=== PATIENT | male | born 1930 | race Caucasian/White ===

== ENCOUNTER 2017-04-19 18:33 | Inpatient (IN) | payer OTHER ==
[~2017-04-19] VITALS: Ht 177.8 cm; Wt 77.3 kg
--- NOTE | ~2017-04-19 | EKG ---
[address] [place] [address] ELECTROCARDIOGRAM REPORT Name: JOHN CANADA Room #: 437-P ADM IN M.R.#: [id number] Admission: 04/19/17 Attend Phys: Gama Choudhury MD Discharge: Date of : [birth year] Report #: [id number] THIS REPORT FOR: //name// [facility] ED Test Date: 2017-04-19 Test Time: 18:45:12 Pat Name: JOHN CANADA Department: Room: [facility] Gender: M Ell Tutor: LIBAN : 1930 Requested By: Gus Weeks Order Number: [id number] MD: Celestine Alfonso Measurements Intervals [place] Rate: 91 P: 70 PA: 195 QRS: -66 QRSD: 156 T: 111 QT: 420 QTc: 517 Interpretive Statements Atrial-sensed ventricular-paced rhythm No further analysis attempted due to paced rhythm Compared to ECG 09/30/2012 07:17:10 No significant changes Electronically Signed On 04-20-2017 9:24:10 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
--- NOTE | ~2017-04-19 | HC ---
[facility] [place] [address] CONSULTATION Name: NANCIEJOHN Room #: 437-P [facility] IN .R.#: [id number] Admission: 04/19/17 Attend Phys: Gama Choudhury MD Discharge: 04/22/17 Date of : [birth year] Report #: [id number] THIS REPORT FOR: //name// CC: Hoa Becerra DATE OF SERVICE: 04/22/2017 HISTORY OF PRESENT ILLNESS: An 86-year-old white male with history of coronary artery disease, prior coronary artery bypass grafting with permanent pacemaker, admitted with worsening weakness. He was noted to have a community-acquired pneumonia. He also had an elevated bilirubin. He has been monitored closely by Internal Medicine. His bilirubin is decreased from total bilirubin of 3.3 down to 1.4. He has been treated for the community-acquired pneumonia and has been given Levaquin. Regarding the hyperbilirubinemia, he did have an abdominal ultrasound, which showed normal liver architecture. We started possibly due to medications. He does have a mildly elevated ALT consistent with statin usage. He also had an episode of hematuria. He was seen by Urology diagnosed with phimosis and was thought that hematuria was due to retraction of his foreskin. He will need cystoscopy as an outpatient and he is to follow up with his regular urologist as he does have a prior history of prostate CA with radiation. The patient has been followed by geriatrics as well and is noted to have sarcopenia with depression. They are recommending not utilize any medication for that at this time. Likely some of it is an expected adjustment/grieving with the fairly recent loss of his . The patient has had a significant decline in his overall functional abilities and we are seeing him in rehabilitation medicine consultation. PAST MEDICAL HISTORY: Includes the prostate cancer with radiation therapy, history of coronary artery disease with CABG x 5 in 1990, AAA repair with stent grafting in 2009, dyslipidemia, insomnia, permanent pacemaker, heart block, and orthostatic hypotension. ALLERGIES: PENICILLIN AND LATEX. HABITS: Former tobacco smoker, greater than 1 year; history of alcohol use in the past, although I am uncertain to what extent. SOCIAL HISTORY: Lives in a house, two steps in. His , I believe last fall. A daughter moved in with him and another daughter helps out as well. He has a quad cane and a walker, although he was typically utilizing them and this was basically just transferring back and forth to a bedside commode. They have been using a wheelchair to get him out of the house for doctor's appointments. Daughter notes she has been having difficulty caring for him at his most recent functional level. [address] [address] CONSULTATION Name: JOHN CANADA JR Room #: 437-P [facility] IN M.R.#: [id number] Admission: 04/19/17 Attend Phys: Gama Choudhury MD Discharge: 04/22/17 Date of : [birth year] Report #: [id number] REVIEW OF SYSTEMS: Did not offer any current complaints of chest pain, shortness of breath or abdominal discomfort. There is a note in the chart of some baseline dementia. He denied any focal extremity pain complaints at this time. He does note that he is overall weak. PHYSICAL EXAMINATION: GENERAL: An 86-year-old white male in no obvious distress. VITAL SIGNS: Last recorded temperature 98, pulse 70, respirations 18, and blood pressure 142/57. He is alert. HEENT: Appeared to be benign. NEUROLOGIC: Cranial nerves are grossly intact. Facies are symmetric. He will follow basic 1 step commands. There is a definite latency to his responses. Functional range of motion of both upper extremities. Strength is grade 4-/5. DTRs are trace to 1. Lower extremities, no focal calf swelling, functional range of motion with strength grade 3+ to 4-/5. He has been min assist to try to stand, supine to sit is min assist. He did ambulate 8 steps mod assist. ASSESSMENT: An 86-year-old white male with the following problems: 1. Medical complex with generalized debilitation. 2. Community-acquired pneumonia. 3. Hyperbilirubinemia apparently due to medications. 4. Sarcopenia. 5. Heart block status post permanent pacemaker. 6. Dementia, nevertheless living in the community. 7. History of prostate CA. He underwent radiation. He did have hematuria during this hospitalization as noted above and will need followup with his urologist as an outpatient. 8. Abdominal aortic aneurysmal repair with stent graft. 9. Hyperlipidemia. PLAN: The patient is a candidate for an acute in-hospital inpatient rehabilitation stay. From a preadmission screening perspective: 1. Prior level of function is well delineated above. 2. Expect level of improvement would be for him to hopefully achieve modified independent with basic transfers, so he can at least get back to being able to transfer back and forth to the bedside commode. Ideally, we will get him up ambulating better and improving his overall function, so that his daughter can care for him in the home setting. Would anticipate a length of stay of probably at least 7-10 days, potentially longer if needed. 3. Evaluation of the patient's risk for clinical complications. He has the multiple medical comorbidities as noted above including the pneumonia, hyperbilirubinemia, coronary artery disease, history of stent grafting. He had the hematuria. All of these things will need to be followed. They are all potential complications. 4. Condition that caused the need for rehabilitation would be the medical complex with generalized debilitation. [facility] [address] [place] [address] CONSULTATION Name: JOHN CANADA JR Room #: 437-P DIS IN M.R.#: [id number] Admission: 04/19/17 Attend Phys: Gama Choudhury MD Discharge: 04/22/17 Date of : [birth year] Report #: [id number] 5. Treatments needed would include PT and OT 1 and 1-1/2 hours per day each five days a week throughout the duration of the acute inpatient rehabilitation stay. 6. Anticipated discharge destination is back to the home setting. 7. Would anticipate home healthcare therapies once he is ready for discharge. 8. The patient meets diagnostic criteria for an acute in-hospital inpatient rehabilitation stay. He meets medical necessity criteria and we will have the senior research consultant physicians continue to follow while he is on rehabilitation. He does have the tolerance for an acute rehabilitation level and has appropriate discharge goals back to the home setting. <ELECTRONICALLY SIGNED> By: Marlon Becerra MD 05/04/17 1511 [id number] Marlon Becerra MD /[facility]
[~2017-04-19 18:33] MED LIST: ACETAMINOPHEN650 M5 PO; ADULT LOW DOSE81 MG PO; AFLURIA 2045 MCG/0.4; AMBIEN 10 MG TA10 MG PO; ARICEPT10 MG PO; ASPIRIN EC81 M1 PO; ASPIRIN325 PO; B12INJ; CARVEDILOL12.5 MG PO; CARVEDILOL6.25 MG PO; CELEXA 20 MG TA20 M1 PO; CELEXA40 MG PO; CRESTOR20 MG PO; FERRO-TIME325 MG PO; FISH OIL 1,001000 M1 PO; LISINOPRIL2.5 MG PO; MIDODRINE HCL 55 M1 PO; NAMENDA 10 MG T10 MG PO; OMEPRAZOLE 20 M20 M1 PO; PLAVIX 75 MG TA75 MG PO; PNEUMOVAX25 MCG/0.5; PROTONIX40 M2 PO; PYRIDOSTIGMINE60 M1 PO; SIMVASTATIN80 MG PO; VITAMIN B-12500 MCG PO; VITAMIN D31000 UNI2 PO
[2017-04-19 18:34] VITALS: BP 158/74
[2017-04-19 19:00] LABS: HEMATOCRIT 43.5 % (42.0-52.0); HEMOGLOBIN 15.2 gm/dL (14.0-18.0); MCH 32.1 pg (26.0-34.0); MCHC 34.9 g/dL (28.0-37.0); PLATELET COUNT 112 thou/uL (150-400); RBC 4.73 mil/uL (4.50-6.00); RDW 13.7 % (10.5-14.5)
[2017-04-19 19:08] LABS: ANION GAP 11 mmol/L (7-16); BUN 15 mg/dL (7-18); CHLORIDE 105 mmol/L (98-107); CO2 25 mmol/L (21-32); GLUCOSE 122 mg/dL (74-106); POTASSIUM 3.5 mmol/L (3.5-5.1); SODIUM 141 mmol/L (136-145)
[2017-04-19 19:17] LABS: ALBUMIN 3.2 g/dL (3.4-5.0); MAGNESIUM 1.8 mg/dL (1.8-2.4); SGOT 12 U/L (15-37); SGPT 13 U/L (30-65); TOTAL BILIRUBIN 3.3 mg/dL (<0.1-1.0); TOTAL PROTEIN 6.7 g/dL (6.4-8.2); TROPONIN-I < 0.04 ng/mL (<0.06)
[2017-04-19 19:17] LABS: URINE BILIRUBIN NEGATIVE (Negative); URINE BLOOD 2+ (Negative); URINE CLARITY CLEAR; URINE COLOR YELLOW; URINE GLUCOSE-RANDOM* NEGATIVE (Negative); URINE KETONES 1+ (Negative); URINE LEUKOCYTES-REFLEX NEGATIVE (Negative); URINE NITRITE-REFLEX NEGATIVE (Negative); URINE PROTEIN (DIPSTICK) TRACE (Negative); URINE SPECIFIC GRAVITY >= 1.030 (1.005-1.035); URINE UROBILINOGEN 0.2 E.U./dl (0.2-1.0)
[2017-04-19 19:26] LABS: ABSOLUTE NEUTROPHILS 5.2 thou/uL (1.4-8.2); ANISOCYTOSIS 1+; POLYCHROMASIA OCCASIONAL
[2017-04-19 19:28] LABS: CASTS None Seen /LPF (None Seen); CRYSTALS None Seen /LPF (None Seen); SQUAMOUS 0-3 Few /LPF (0-3); URINE RBC 3-10 Few /HPF (0-2)
[2017-04-19 19:29] LABS: BACTERIA-REFLEX 1-9 Few /HPF (None Seen); URINE WBC-REFLEX None Seen /HPF (0-5)
[2017-04-19 20:11] LABS: DIRECT BILIRUBIN 0.3 mg/dL (<0.1-0.3); TOTAL BILIRUBIN 3.3 mg/dL (<0.1-1.0)
[2017-04-19 20:44] VITALS: BP 166/73
[2017-04-19 21:09] VITALS: BP 166/73
[2017-04-19 21:45] VITALS: BP 145/64
[2017-04-19 23:06] LABS: ALBUMIN 3.2 g/dL (3.4-5.0); DIRECT BILIRUBIN 0.3 mg/dL (<0.1-0.3); TOTAL BILIRUBIN 3.3 mg/dL (<0.1-1.0); TOTAL PROTEIN 6.7 g/dL (6.4-8.2)
[2017-04-20 05:00] VITALS: BP 116/61
[2017-04-20 06:06] LABS: HEMATOCRIT 40.5 % (42.0-52.0); HEMOGLOBIN 13.8 gm/dL (14.0-18.0); MCH 31.9 pg (26.0-34.0); MCV 93.7 fL (80.0-100.0); RBC 4.33 mil/uL (4.50-6.00); RDW 13.7 % (10.5-14.5); WBC 6.4 thou/uL (4.0-11.0)
[2017-04-20 06:20] LABS: CALCIUM 8.4 mg/dL (8.5-10.1); CREATININE 1.1 mg/dL (0.7-1.3); POTASSIUM 3.5 mmol/L (3.5-5.1)
[2017-04-20 08:00] VITALS: BP 124/53
[2017-04-20 16:00] VITALS: BP 125/61
[2017-04-20 19:13] VITALS: BP 148/66
[2017-04-21 04:10] VITALS: BP 156/82
[2017-04-21 05:31] LABS: ABSOLUTE NEUTROPHILS 3.5 thou/uL (1.4-8.2); BASOPHILS 0.3 % (0.0-2.0); EOSINOPHILS 1.1 % (0.0-3.0); HEMATOCRIT 40.8 % (42.0-52.0); LYMPHOCYTES 12.6 % (24.0-44.0); MCH 31.8 pg (26.0-34.0); MCHC 34.2 g/dL (28.0-37.0); MONOCYTES 10.5 % (1.0-8.0); PLATELET COUNT 107 thou/uL (150-400); POLYS 75.5 % (36.0-66.0); RBC 4.39 mil/uL (4.50-6.00); RDW 13.9 % (10.5-14.5); WBC 4.6 thou/uL (4.0-11.0)
[2017-04-21 05:41] LABS: CALCIUM 8.5 mg/dL (8.5-10.1); CREATININE 1.2 mg/dL (0.7-1.3); POTASSIUM 3.3 mmol/L (3.5-5.1)
[2017-04-21 07:35] VITALS: BP 154/69
[2017-04-21 15:55] VITALS: BP 157/63
[2017-04-21 19:12] VITALS: BP 153/90
[2017-04-22 00:36] VITALS: BP 143/87
[2017-04-22 03:22] VITALS: BP 112/56
[2017-04-22 06:17] LABS: CHOLESTEROL 113 mg/dL (<200); HDL CHOLESTEROL 26 mg/dL (>40); LDL CHOLESTEROL 64 mg/dL (<100); TC:HDL 4.3 Ratio (Not establshd); TRIGLYCERIDE 116 mg/dL (<150); VLDL 23 mg/dL (<40)
[2017-04-22 06:18] LABS: ALBUMIN 2.8 g/dL (3.4-5.0); CALCIUM 8.7 mg/dL (8.5-10.1); CREATININE 1.2 mg/dL (0.7-1.3); POTASSIUM 3.3 mmol/L (3.5-5.1); TOTAL BILIRUBIN 1.4 mg/dL (<0.1-1.0); TOTAL PROTEIN 6.1 g/dL (6.4-8.2)
[2017-04-22 06:48] LABS: TSH 5.599 uIU/mL (0.358-3.740)
[2017-04-22 08:00] VITALS: BP 142/57
[2017-04-22] MEDS ORDERED: LEVAQUIN 500 M500 M2 PO (10:32)
[2017-04-22 16:00] VITALS: BP 127/53
[2017-10-04] MEDS ORDERED: NAMENDA 5 MG TAB5 M1 PO (22:38)
[2017-10-08] MEDS ORDERED: MUCINEX600 MG PO (11:27)
[2017-10-08] MEDS ORDERED: DUONEB 2.5-0.5 M3 ML INH (11:27)
[2017-10-08] MEDS ORDERED: ERGOCALCIF50000 UNIT PO (11:27)
[2017-10-08] MEDS ORDERED: LEVAQUIN 750 M750 MG PO (11:32)
== END 2017-04-22 17:38 | disposition short-term general hospital (02) | DRG 871 ==
LOC: ER 18:33 → 4S 20:12 → EROBS 20:12 → 4S 21:10
PROVIDERS: Emergency Medicine; Hospitalist; Nurse Practitioner Family; Registered Nurse
DX: A41.9 Sepsis, unspecified organism (principal); J18.1 Lobar pneumonia, unspecified organism; N47.1 Phimosis; I25.10 Atherosclerotic heart disease of native coronary artery without angina pectoris; E78.5 Hyperlipidemia, unspecified; G47.00 Insomnia, unspecified; F03.90 Unspecified dementia, unspecified severity, without behavioral disturbance, psychotic disturbance, mood disturbance, and anxiety; E80.6 Other disorders of bilirubin metabolism; M62.84 Sarcopenia; F32.9 Major depressive disorder, single episode, unspecified; Z85.46 Personal history of malignant neoplasm of prostate; Z92.3 Personal history of irradiation; Z95.1 Presence of aortocoronary bypass graft; Z95.0 Presence of cardiac pacemaker; Z85.828 Personal history of other malignant neoplasm of skin; Z79.899 Other long term (current) drug therapy; Z79.82 Long term (current) use of aspirin; Z88.0 Allergy status to penicillin; Z91.040 Latex allergy status; Z87.891 Personal history of nicotine dependence
CPT/HCPCS: 10195

== ENCOUNTER 2017-04-22 16:13 | Inpatient (IN) | payer OTHER ==
[~2017-04-22] VITALS: Ht 177.8 cm; Wt 82.5 kg
--- NOTE | ~2017-04-22 | H ---
[facility] [place] [address] HISTORY AND PHYSICAL Name: NANCIEJOHN Room #: 510-P [facility] IN M.R.#: [id number] Admission: 04/22/17 Attend Phys: Marlon Becerra MD Discharge: 05/04/17 Date of : [birth year] Report #: [id number] THIS REPORT FOR: //name// CC: Hoa Becerra DATE OF SERVICE: 04/22/2017 HISTORY OF PRESENT ILLNESS: The patient is an 86-year-old male with a history of coronary artery disease, prior coronary artery bypass grafting with permanent pacemaker originally admitted to [facility] with worsening weakness. He was noted to have a community-acquired pneumonia. He also had an elevated bilirubin. He was monitored closely by Internal Medicine. His bilirubin decreased from a total bilirubin of 3.3 down to 1.4. He was treated for community-acquired pneumonia and was given Levaquin. Regarding his hyperbilirubinemia. He did have an abdominal ultrasound, which showed normal liver architecture. He was noted to have a mildly elevated ALT consistent with statin usage. He also had an episode of hematuria. He was seen by Urology and diagnosed with phimosis and it was thought that the hematuria was due to retraction of his foreskin. It is noted that he will need cystoscopy as an outpatient and he is to follow up with his regular urologist, as he does have a prior history of prostate cancer with radiation. The patient has also been followed by Geriatrics as well and is noted to have sarcopenia with depression. They are not recommending any specific medication utilization at this time. He has had an adjustment with grieving with the fairly recent loss of his . He has been noted to have a significant decline in his functional mobility and ADLs and has been admitted for acute in-hospital inpatient rehabilitation. PAST MEDICAL HISTORY: Includes prostate cancer with radiation therapy, history of coronary artery disease with CABG x 5 in 1990, abdominal aortic aneurysmal repair with stent grafting in 2009, dyslipidemia, insomnia, permanent pacemaker, heart block, orthostatic hypotension. ALLERGIES: PENICILLIN AND LASIX. HABITS: Former tobacco smoker, greater than 1 year history of alcohol use in the past, uncertain to what extent. SOCIAL HISTORY: Lives in a house, 2 steps. His apparently last fall. There is a daughter that moved in with him and another daughter helps out as well. He has a quad cane and a walker, although he was not typically utilizing them and it sounds like he was basically just transferring back and forth to a bedside commode. There were using a wheelchair to get him out of the house for doctor's appointments. Daughter notes that she has been having difficulty caring for him at his most recent functional level. [facility] [address] [place] [address] HISTORY AND PHYSICAL Name: JOHN CANADA JR Room #: 510-P [facility] IN M.R.#: [id number] Admission: 04/22/17 Attend Phys: Marlon Becerra MD Discharge: 05/04/17 Date of : [birth year] Report #: [id number] REVIEW OF SYSTEMS: No current complaints of chest pain, shortness of breath, abdominal discomfort. He does have a history of some baseline dementia. No focal extremity pain complaints. PHYSICAL EXAMINATION: GENERAL: The patient was seen earlier today. He was sleepy but did arouse. VITAL SIGNS: Temperature was 36.9, pulse 83, respirations 20, blood pressure 146/63. HEENT: Appeared to be benign. CHEST: Sounded clear to auscultation. CARDIOVASCULAR: Regular rate and rhythm. ABDOMEN: Bowel sounds positive, nontender. GENITOURINARY AND RECTAL: Deferred. NEUROLOGIC: Cranial nerves are grossly intact. Facies are symmetric. He was following basic 1 step commands with a definite latency to his responses. Functional range of motion of both upper extremities with strength grade 4-/5. DTRs are trace to 1. Lower extremities, no focal calf swelling with functional range of motion with strength grade 3+ to 4-/5. He has been min assist with basic functional mobility skills. He has ambulated short distance with mod assist. ASSESSMENT: 1. Medical complexity with generalized debilitation. 2. Community-acquired pneumonia. 3. Hyperbilirubinemia apparently due to medications. 4. Sarcopenia. 5. Heart block status post permanent pacemaker. 6. Dementia, nevertheless living in the community. 7. History of prostate cancer for which he underwent radiation. He has had hematuria during his prior hospitalization. 8. Abdominal aortic aneurysmal repair with stent graft. 9. Hyperlipidemia. PLAN: The patient was admitted for acute in-hospital inpatient rehabilitation. From a postadmission physician evaluation perspective, there are no relevant changes since the preadmission screening. Please see the above review of prior and current medical and functional conditions and comorbidities. Please see the patient's previous and current functional status. As far as risk of complications, the patient has multiple medical comorbidities as noted above. Initial plan of care involves the interdisciplinary acute inpatient rehabilitation program with the goal of maximizing the patient's functional independence, so that he can hopefully return back to his prior living situation. Measurable functional goals would be for the patient to become modified independent with transfers, mobility and ADLs, so that he can return back to his prior living situation. Prognosis is reasonably good with estimated length of stay probably at least 7-10 days and likely longer if needed. [address] [address] HISTORY AND PHYSICAL Name: JOHN CANADA Room #: 510-P [facility] IN [facility]#: [id number] Admission: 04/22/17 Attend Phys: Marlon Becerra MD Discharge: 05/04/17 Date of : [birth year] Report #: [id number] Potential barriers would include his multiple medical comorbidities and decreased functional status. The patient meets diagnostic criteria for an acute in-hospital inpatient rehabilitation stay. He meets medical necessity criteria and he does have the multiple medical comorbidities as noted above. He does have the tolerance for an acute rehabilitation level of care and has appropriate discharge goals back to the home setting. <ELECTRONICALLY SIGNED> By: Marlon Becerra MD 05/04/17 1509 1339 1410 Marlon Becerra MD /[facility]
--- NOTE | ~2017-04-22 | HC ---
[facility] [place] [address] CONSULTATION Name: JOHN CANADA Room #: 510-P [facility] IN M.R.#: [id number] Admission: 04/22/17 Attend Phys: Marlon Becerra MD Discharge: Date of : [birth year] Report #: [id number] THIS REPORT FOR: //name// CC: Hoa Becerra DATE OF SERVICE: 05/01/2017 ATTENDING PHYSICIAN: Marlon Becerra MD REED MAKER: Rajiv aLdd, PhD CLINICAL PRESENTATION: The patient is an 86-year-old male admitted to [facility] for comprehensive inpatient rehabilitation program to improve functional mobility, activities of daily living and self-care and mental status secondary to deficits from medical complexity and generalized debility. His assessment also includes community-acquired pneumonia, hyperbilirubinemia due to medication, sarcopenia, heart block status post permanent pacemaker, dementia, history of prostate cancer for which he underwent radiation with hematuria during this current hospitalization, abdominal aortic aneurysm repair with stent graft and hyperlipidemia. A complete description of his medical condition and history can be found in his medical record. Neuropsychological consultation was requested to assist in the assessment of cognitive and emotional status and to provide recommendations and services. Prior to this most recent medical event, he was living with the assistance of one of his 2 daughters. The patient is a college graduate. 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 He has two daughters and one son. His over 1 year ago. He has been living with his daughter since the of his . TECHNIQUES UTILIZED: Clinical interview, review of medical records, staff consultation and behavioral observation, mini-mental status exam 2 standard version, clock drawing, brief abstract reasoning test and category fluency and family interview - daughter. EXAMINATION FINDINGS: The patient was alert and cooperative with the assessment. There is no evidence of aphasia. He does not report auditory or visual hallucinations. There is no suicidal ideation. His thoughts are logical and goal oriented. The patient is reported to have been quite sedentary for several years prior to this recent medical event and of his . His daughter indicated that his had often tried to encourage [address] [address] CONSULTATION Name: NANCIEJOHN Room #: 510-P [facility] IN .R.#: [id number] Admission: 04/22/17 Attend Phys: Marlon Becerra MD Discharge: Date of : [birth year] Report #: [id number] activity for him, but he remained very sedentary at their home. His deterioration in cognition has an approximate 5-6 years duration. 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 He does not report subjective anxiety, depression, memory, word finding or concentration. Symptoms include hearing, which requires increased volume, tiredness and fatigue. He does not report difficulty with sleep or appetite. The patient frequently has been requesting opportunities to lie in his bed and reports feeling tired. As indicated earlier, his daughter has indicated that the patient has longstanding history of sedentary and less active behavior. His performance on the MMSE 2 brief version is in the mild to moderate range of impairment with a raw score of 12 of 16. He was 2 of 3 for initial registration, 4 of 5 for orientation to time, 5 of [address] and 1 of 3 for immediate recall of 3 items after a brief time delay and distraction. His performance improved on the MMSE 2 standard version to a raw score 24 of 30, T score of 36, which is in the mild range of neurocognitive deficit. Category fluency was extremely low. He had animal fluency with a raw score of 10 and supermarket fluency raw score of 9. Combined category fluency is 19, which is a T score of 28 percentile rank of 1. Moderate deficits in verbal fluency are suggested. His performance on a brief abstract reasoning test was 3 of 8 suggesting moderate to severe deficits. The patient was able to draw clock and set the hands at a designated time. The patient is presenting with a neurocognitive disorder that is variable, but likely of mild to moderate impairment. Longstanding behavior disorder in regard to sedentary action is described. He reports have attempted an antidepressant in the past, which was discontinued because of adverse side effects. DIAGNOSTIC IMPRESSION: Neurocognitive disorder - extent to be determined likely in the mild to moderate range. Unspecified anxiety disorder. RECOMMENDATIONS: The patient will benefit from continued opportunities for socialization during his rehabilitation program. Encouraging the patient to eat in the communal dining area will also be helpful. Assistance in the management of medication and finances will be necessary in order to maintain safety. The patient should discontinue driving. Activity should be encouraged along with verbal praise and complements about participating in therapies and maintaining an active schedule. [facility] [address] [place] [address] CONSULTATION Name: JOHN CANADA JR Room #: 510-P ADM IN M.R.#: [id number] Admission: 04/22/17 Attend Phys: Marlon Becerra MD Discharge: Date of : [birth year] Report #: [id number] Thank you very much for allowing me to provide the consultation on this patient. <ELECTRONICALLY SIGNED> By: Rajiv Ladd, PhD 05/03/17 1329 1834 [id number] Rajiv Ladd, PhD /nt
--- NOTE | ~2017-04-22 | PLAN ---
[facility] [place] [address] REHAB UNIT PLAN OF CARE Name: JOHN CANADA Room #: 510-P [facility] IN M.R.#: [id number] Admission: 04/22/17 Attend Phys: Marlon Becerra MD Discharge: 05/04/17 Date of : [birth year] Report #: [id number] THIS REPORT FOR: //name// CC: Hoa Becerra DATE OF SERVICE: 04/24/2017 SUBJECTIVE: The patient is seen back today in followup. He is in no distress. Last recorded temperature is 36.7, pulse 77, respirations 18, blood pressure 129/72. He is pleasant. Transfers are min assist. Gait is min assist 25 feet with a front-wheeled walker. He is going up and down 4 steps with min assist. In occupational therapy, lower body dressing is max assist. Upper body dressing is standby assistance. ASSESSMENT: 1. Medical complex with generalized debilitation. 2. Community-acquired pneumonia. 3. Hyperbilirubinemia apparently due to medications. 4. Sarcopenia. 5. Heart block status post permanent pacemaker. 6. Dementia, nevertheless living in the community. 7. History of prostate cancer for which he underwent radiation. He has had hematuria during his prior hospitalization. 8. Abdominal aortic aneurysmal repair with stent graft. 9. Hyperlipidemia. PLAN: The overall plan of care is based on the preadmission screen, post-admission physician evaluation and information garnered from therapy assessments. 1. Estimated length of stay is at least 7-10 days and potentially longer. 2. Medical prognosis is reasonably good. 3. Anticipated interventions includes the interdisciplinary acute inpatient rehabilitation program with goal of maximizing the patient's functional independence, so that he can hopefully return back to his prior living situation. PT, OT, rehab nursing assisting regarding medication management, skin care prophylaxis, bowel and bladder issues and nursing education. Consulted physician will continue to follow. 4. Anticipated functional outcomes would be for the patient to hopefully improved to the point where he can get back to mobility and ADLs at a walker level, although basically it was just using a wheelchair or basically just transferring back and forth to the bedside commode prior to admission. The goal is to get him to a point where he can functionally be cared for by family to return back home. 5. Discharge destination would be back home where his daughter is staying with him. [address] [address] REHAB UNIT PLAN OF CARE Name: JOHN CANADA Room #: 510-P DIS IN M.R.#: [id number] Admission: 04/22/17 Attend Phys: Marlon Becerra MD Discharge: 05/04/17 Date of : [birth year] Report #: [id number] 6. Expected therapy by discipline includes PT and OT 1-1/2 hours per day each 5 days a week throughout the duration of the acute inpatient rehabilitation stay. <ELECTRONICALLY SIGNED> By: Marlon Becerra MD 05/04/17 1509 1039 [id number] Marlon Becerra MD /[facility]
[~2017-04-22 16:13] MED LIST changes: +LEVAQUIN 500 M500 M2 PO
[2017-04-22 17:45] VITALS: BP 161/81
[2017-04-22 20:01] VITALS: BP 146/63
[2017-04-23 06:07] LABS: HEMATOCRIT 40.1 % (42.0-52.0); HEMOGLOBIN 13.8 gm/dL (14.0-18.0); MCH 31.9 pg (26.0-34.0); MCHC 34.3 g/dL (28.0-37.0); MCV 92.8 fL (80.0-100.0); RBC 4.32 mil/uL (4.50-6.00); RDW 13.7 % (10.5-14.5); WBC 4.9 thou/uL (4.0-11.0)
[2017-04-23 06:26] LABS: CALCIUM 8.5 mg/dL (8.5-10.1); POTASSIUM 3.4 mmol/L (3.5-5.1)
[2017-04-23 08:00] VITALS: BP 146/77; BP 162/75; BP 179/99
[2017-04-23 20:04] VITALS: BP 129/72
[2017-04-24 20:24] VITALS: BP 115/70
[2017-04-24 20:25] VITALS: BP 121/74; BP 122/74
[2017-04-25 07:30] VITALS: BP 117/70; BP 144/61; BP 156/84
[2017-04-25 20:04] VITALS: BP 106/51; BP 122/57; BP 125/56
[2017-04-26 06:34] LABS: HEMATOCRIT 38.7 % (42.0-52.0); HEMOGLOBIN 13.2 gm/dL (14.0-18.0); MCH 31.6 pg (26.0-34.0); MCHC 34.1 g/dL (28.0-37.0); MCV 92.7 fL (80.0-100.0); RBC 4.18 mil/uL (4.50-6.00); RDW 13.4 % (10.5-14.5); WBC 5.2 thou/uL (4.0-11.0)
[2017-04-26 06:57] LABS: ALBUMIN 2.6 g/dL (3.4-5.0); CALCIUM 8.3 mg/dL (8.5-10.1); CREATININE 0.9 mg/dL (0.7-1.3); DIRECT BILIRUBIN 0.2 mg/dL (<0.1-0.3); MAGNESIUM 2.1 mg/dL (1.8-2.4); POTASSIUM 3.9 mmol/L (3.5-5.1)
[2017-04-26 09:53] VITALS: BP 131/60
[2017-04-26 09:54] VITALS: BP 133/60
[2017-04-26 09:55] VITALS: BP 119/50
[2017-04-26 20:35] VITALS: BP 118/56
[2017-04-27 07:41] VITALS: BP 139/57
[2017-04-27 17:39] LABS: URINE BILIRUBIN NEGATIVE (Negative); URINE BLOOD TRACE (Negative); URINE CLARITY CLEAR; URINE COLOR YELLOW; URINE GLUCOSE-RANDOM* NEGATIVE (Negative); URINE KETONES NEGATIVE (Negative); URINE LEUKOCYTES-REFLEX NEGATIVE (Negative); URINE NITRITE-REFLEX NEGATIVE (Negative); URINE PROTEIN (DIPSTICK) NEGATIVE (Negative); URINE SPECIFIC GRAVITY 1.025 (1.005-1.035); URINE UROBILINOGEN 0.2 E.U./dl (0.2-1.0)
[2017-04-27 20:00] VITALS: BP 129/58
[2017-04-28 07:45] VITALS: BP 145/59
[2017-04-28 20:13] VITALS: BP 132/57
[2017-04-29 07:03] LABS: HEMATOCRIT 40.2 % (42.0-52.0); HEMOGLOBIN 13.7 gm/dL (14.0-18.0); MCH 31.7 pg (26.0-34.0); MCV 93.2 fL (80.0-100.0); PLATELET COUNT 167 thou/uL (150-400); RBC 4.31 mil/uL (4.50-6.00); RDW 13.6 % (10.5-14.5); WBC 4.3 thou/uL (4.0-11.0)
[2017-04-29 07:22] LABS: CALCIUM 8.8 mg/dL (8.5-10.1); MAGNESIUM 2.3 mg/dL (1.8-2.4); POTASSIUM 3.9 mmol/L (3.5-5.1)
[2017-04-29 07:30] VITALS: BP 151/69
[2017-04-29 09:02] LABS: ABSOLUTE NEUTROPHILS 2.8 thou/uL (1.4-8.2); ANISOCYTOSIS SLIGHT
[2017-04-29 19:58] VITALS: BP 109/71
[2017-04-30 07:30] VITALS: BP 134/69
[2017-04-30 19:47] VITALS: BP 125/60
[2017-05-01 08:15] VITALS: BP 156/68
[2017-05-01] MEDS ORDERED: VITAMIN B-12500 MCG PO (13:11)
[2017-05-01] MEDS ORDERED: COLACE100 MG PO (13:11)
[2017-05-01] MEDS ORDERED: MILK OF MA2400 MG/10 PO (13:11)
[2017-05-01 20:33] VITALS: BP 94/31
[2017-05-02 08:15] VITALS: BP 126/56
[2017-05-02 20:48] VITALS: BP 140/58
[2017-05-03 07:56] VITALS: BP 137/58
[2017-05-03 20:28] VITALS: BP 103/50
[2017-05-04 08:30] VITALS: BP 141/66
[2017-10-04] MEDS ORDERED: NAMENDA 5 MG TAB5 M1 PO (22:38)
[2017-10-08] MEDS ORDERED: DUONEB 2.5-0.5 M3 ML INH (11:27)
[2017-10-08] MEDS ORDERED: MUCINEX600 MG PO (11:27)
[2017-10-08] MEDS ORDERED: ERGOCALCIF50000 UNIT PO (11:27)
[2017-10-08] MEDS ORDERED: LEVAQUIN 750 M750 MG PO (11:32)
== END 2017-05-04 11:28 | DRG 947 ==
PROVIDERS: Internal Medicine; Nurse Practitioner; Physical Medicine & Rehabilitation
DX: R53.81 Other malaise (principal); J18.9 Pneumonia, unspecified organism; E80.6 Other disorders of bilirubin metabolism; M62.84 Sarcopenia; F03.90 Unspecified dementia, unspecified severity, without behavioral disturbance, psychotic disturbance, mood disturbance, and anxiety; E78.5 Hyperlipidemia, unspecified; I25.10 Atherosclerotic heart disease of native coronary artery without angina pectoris; G47.00 Insomnia, unspecified; F41.9 Anxiety disorder, unspecified; F01.50 Vascular dementia, unspecified severity, without behavioral disturbance, psychotic disturbance, mood disturbance, and anxiety; F32.9 Major depressive disorder, single episode, unspecified; I45.9 Conduction disorder, unspecified; I71.4 Abdominal aortic aneurysm, without rupture; G31.84 Mild cognitive impairment of uncertain or unknown etiology; T50.905A Adverse effect of unspecified drugs, medicaments and biological substances, initial encounter; Z91.040 Latex allergy status; Z79.82 Long term (current) use of aspirin; Z95.0 Presence of cardiac pacemaker; Z85.46 Personal history of malignant neoplasm of prostate; Z88.0 Allergy status to penicillin; Z88.8 Allergy status to other drugs, medicaments and biological substances; Z92.3 Personal history of irradiation; Z95.1 Presence of aortocoronary bypass graft; Z95.5 Presence of coronary angioplasty implant and graft; Z79.899 Other long term (current) drug therapy
CPT/HCPCS: 10112

== ENCOUNTER 2018-03-10 13:45 | Emergency (ER) | payer OTHER ==
[~2018-03-10] VITALS: Ht 180.3 cm; Wt 72.6 kg
[~2018-03-10 13:45] MED LIST changes: +COLACE100 MG PO; +DUONEB 2.5-0.5 M3 ML INH; +ERGOCALCIF50000 UNIT PO; +LEVAQUIN 750 M750 MG PO; +MILK OF MA2400 MG/10 PO; +MUCINEX600 MG PO; +NAMENDA 5 MG TAB5 M1 PO
[2018-03-10 14:10] LABS: ABSOLUTE NEUTROPHILS 6.7 thou/uL (1.4-8.2); BASOPHILS 0.4 % (0.0-2.0); EOSINOPHILS 1.4 % (0.0-3.0); HEMATOCRIT 37.8 % (42.0-52.0); HEMOGLOBIN 12.6 gm/dL (14.0-18.0); LYMPHOCYTES 15.4 % (24.0-44.0); MCH 29.9 pg (26.0-34.0); MCHC 33.2 g/dL (28.0-37.0); MONOCYTES 7.7 % (1.0-8.0); PLATELET COUNT 215 thou/uL (150-400); POLYS 75.1 % (36.0-66.0); RBC 4.21 mil/uL (4.50-6.00); RDW 16.4 % (10.5-14.5); WBC 8.9 thou/uL (4.0-11.0)
[2018-03-10 14:18] LABS: CALCIUM 8.1 mg/dL (8.5-10.1); CREATININE 0.7 mg/dL (0.7-1.3); POTASSIUM 3.9 mmol/L (3.5-5.1)
[2018-03-10 14:24] LABS: ALBUMIN 2.4 g/dL (3.4-5.0); TOTAL BILIRUBIN 0.8 mg/dL (<0.1-1.0); TOTAL PROTEIN 5.8 g/dL (6.4-8.2)
[2018-03-10 14:35] LABS: INR 1.1; PROTIME 11.1 Seconds (9.3-11.4)
[2018-03-10 15:51] VITALS: BP 63/40
== END 2018-03-10 15:54 ==
LOC: ER 13:45
PROVIDERS: Physician Assistant
DX: K92.2 Gastrointestinal hemorrhage, unspecified (principal); I95.9 Hypotension, unspecified; R00.0 Tachycardia, unspecified; Z51.5 Encounter for palliative care; E78.5 Hyperlipidemia, unspecified; I25.810 Atherosclerosis of coronary artery bypass graft(s) without angina pectoris; Z87.891 Personal history of nicotine dependence; Z88.0 Allergy status to penicillin; Z91.040 Latex allergy status